=== PATIENT | female | born 1950 | race Caucasian/White ===

== ENCOUNTER 2018-02-03 01:21 | Outpatient (CLI) | payer MEDICARE, BC, SELFPAY ==
[2018-02-03 11:31] LABS: ALT 34 U/L (12-78); AST 21 U/L (15-37); Albumin 4.1 g/dL (3.4-5.0); Alkaline Phosphatase 59 U/L (46-116); Anion Gap 8.1 mmol/L (3-11); BUN 16 mg/dL (7-18); Bilirubin, Total 0.9 mg/dL (0.2-1.0); CO2 29.9 mmol/L (21.0-32.0); CREATININE 0.85 mg/dL (0.55-1.02); Calcium 9.2 mg/dL (8.5-10.1); Chloride 105 mmol/L (98-107); Cholesterol 162 mg/dL (50-200); Glucose 83 mg/dL (70-100); HDL Cholesterol 64 mg/dL (40-60); LDL CHOLESTEROL 83 mg/dL (<100); Potassium 4.1 mmol/L (3.5-5.1); Sodium 143 mmol/L (136-145); Total Protein 6.6 g/dL (6.4-8.2); Triglyceride 124 mg/dL (30-150)
== END 2018-02-03 01:41 ==
PROVIDERS: PCP Family Medicine; Visit Provider Family Medicine
DX: I10 Essential (primary) hypertension (principal)
CPT/HCPCS: 36415; 80053; 80061; 83721

== ENCOUNTER 2018-06-26 08:03 | Day surgery (SDC) | payer MEDICARE, BC, SELFPAY ==
[2018-06-26 08:13] VITALS: BP 118/57; PULSE 70; RESP 18; TEMP 36.4; O2SAT 97
[2018-06-26] MEDS: Lactated Ringers 1,000 ML 80 ML IV (08:39)
[2018-06-26] MEDS: ceFAZolin 1 GM/50 ML BAG IVPB (10:40)
[2018-06-26] MEDS: Bupivacaine 0.5% Pres-Free 30 ML VIAL (10:45)
[2018-06-26] MEDS: Lidocaine 1% Pres-Free 5 ML VIAL (10:45)
[2018-06-26] MEDS: Dexamethasone 4 MG/ML VIAL (11:30)
--- NOTE | 2018-06-26 11:45 | W.PM.DSUDISC ---
Discharge Plan Discharge Details Attending Provider: Edu Kerr Primary Care Provider: Alesia Juan Home Meds and New Rx's Prescriptions: No Action lisinopril-hydrochlorothiazide [Zestoretic] 10-12.5 mg tablet 1 tab PO DAILY Qty: 90 RF: 12 simvastatin [Zocor] 40 mg tablet 40 mg PO HS Qty: 90 RF: 12 Shingrix Adjuvant Component-PF suspension 1 ml IM ONCE Qty: 0.5 RF: 1 multivitamin 1 EACH tablet 1 ea PO DAILY RF: 0 cetirizine 10 MG tablet 10 mg PO DAILY PRNRF: 0 diphenhydramine HCl 25 mg tablet 25 mg PO HS PRNRF: 0 aspirin 81 MG tablet,delayed release (DR/EC) 81 mg PO DAILY RF: 0 calcium carbonate-vitamin D3 [Calcium 600 with Vitamin D3] 1 EACH capsule 1 ea PO BID RF: 0 DS: Diagnosis Discharge Diagnosis (1) Bunion of great toe of left foot: Start date: 06/26/18 Start time: 11:45 Status: Acute Asessment and Plan: bunionectomy, arthroplasty 2nd toe left foot
--- NOTE | 2018-06-26 11:46 | W.PM.DSUDISC ---
Discharge Plan Disposition Patient Disposition: HOME Condition: Good Discharge Details Reason For Visit: left bunionectomy and a Attending Provider: Edu Kerr Primary Care Provider: Alesia Juan Home Meds and New Rx's Prescriptions: No Action lisinopril-hydrochlorothiazide [Zestoretic] 10-12.5 mg tablet 1 tab PO DAILY Qty: 90 RF: 12 simvastatin [Zocor] 40 mg tablet 40 mg PO HS Qty: 90 RF: 12 Shingrix Adjuvant Component-PF suspension 1 ml IM ONCE Qty: 0.5 RF: 1 multivitamin 1 EACH tablet 1 ea PO DAILY RF: 0 cetirizine 10 MG tablet 10 mg PO DAILY PRNRF: 0 diphenhydramine HCl 25 mg tablet 25 mg PO HS PRNRF: 0 aspirin 81 MG tablet,delayed release (DR/EC) 81 mg PO DAILY RF: 0 calcium carbonate-vitamin D3 [Calcium 600 with Vitamin D3] 1 EACH capsule 1 ea PO BID RF: 0 Discharge Instructions Activity:: Elevate Remove Dressings/Wound Care:: Do Not Remove Shower/Bathe:: Cover Discharge Orders Discharge Orders: Discharge Order (Routine); Ordered 06/26/18 Ordered By: Edu Kerr DS: Diagnosis Discharge Diagnosis (1) Bunion of great toe of left foot: Status: Acute
[2018-06-26 12:25] VITALS: BP 111/62; PULSE 62; RESP 18; TEMP 36.5; O2SAT 97
--- NOTE | 2018-06-26 13:03 | ROE_ITS ---
DATE OF PROCEDURE: June 26, 2018 PREOPERATIVE DIAGNOSIS: 1. Painful left bunion deformity. 2. Painful left second hammertoe deformity. POSTOPERATIVE DIAGNOSIS: Same. PROCEDURE: 1. Rupert-type bunionectomy with 0.062 K-Wire fixation. 2. Arthroplasty left second toe with 0.062 K-Wire fixation. SURGEON: Oniel SewellPRosalee. ANESTHESIA: IV General with local block of the first and second digits utilizing a total 15 cc's 50: 50 mixture 1% Lidocaine plain, 0.5% Marcaine plain. OPERATIVE INDICATIONS: 68-year-old female with pain associated with a left bunion and second hammert oe, which did not respond to non-surgical treatment options. She is pursuing surgical repair. She u nderstands risks and complications pertaining to pain, scarring, infection, stiffness of the joint, o sunday-correction, under-correction, recurrence of deformities, the need for revisional procedures. All questions have been answered. Informed consent has been obtained. No promises are made to final o utcome of surgery. REPORT OF OPERATION: Sina was brought to the operative suite, placed in the supine position. The left foot was prepped and draped in the usual sterile podiatric fashion. Anesthesia being obtained, the left foot was exsanguinated; a well-padded ankle tourniquet inflated 250 mmHg. Attention was directed to the first MPJ where a 5 cm incision was made medial parallel to the EHL ten don, centered over the first MPJ. The incision was deepened in controlled depth fashion; hemostasis acquired with electrocautery as needed. Dissection was carried down to the joint capsule. Lateral c ontracture was appreciated. With a #15 scalpel a lateral capsulotomy was performed. The adductor te ndon was released and the fibular sesamoid mobilized. At this time the hallux was more relaxed. Att ention was directed dorsal medially and an inverted-L capsulotomy performed. The joint capsule was o pened and the first metatarsal head delivered into the wound. Hypertrophy was appreciated along the medial aspect of the first metatarsal head; mild degenerative change around the periphery of the firs t metatarsal head is seen, primarily dorsal and medially. With power instrumentation the medial hype rtrophy was resected. An offset V-osteotomy was then performed through the capital fragment first me tatarsal head. The head was translocated laterally and impacted. Significant improvement in the bun ion deformity noted. Fixation was obtained initially with a 2.7 Synthes screw. The screw spun out a nd bone was a little soft, so I decided to use a K-Wire percutaneously. A percutaneous K-Wire was th en placed, starting distal lateral through the first metatarsal head, exiting medial proximal through the skin. Excellent stability was noted. The medial shelf was resected. All rough and bony edges rasped smooth. The joint capsule was repaired with simple interrupted suture #3-0 Vicryl. A medial capsulorrhaphy was performed, tightening the joint. The hallux was sitting in a rectus position. Th e subcutaneous layer was repaired with #3-0 Vicryl. A running subcuticular stitch of #4-0 Monocryl w as used, followed by Mastisol and half-inch Steri-Strips. Attention was directed to the second toe. Two converging semielliptical incisions were placed over t he PIPJ. A skin wedge was excised. Soft tissue mobilization was performed. A transverse tenotomy c apsulotomy was performed at the PIPJ level with a #15 scalpel. Medial and lateral collaterals were r eleased. The head of the proximal phalanx delivered into the wound. With double-action bone-cutting forceps the head was resected, all rough and bony edges rasped smooth. The bone was soft. Copious irrigation was performed. Fixation was obtained through retrograde technique with a 0.062 K-Wire goi ng to the base of the proximal phalanx. There was no contracture at the MPJ level to correct. The e xtensor tendon was repaired end-to-end after shortening with #3-0 Vicryl, and the skin was coapted wi th simple interrupted suture #4-0 Nylon. Four milligrams of Dexamethasone Phosphate was infused betw een the wounds. Xeroform applied, followed by gauze fluff compression dressings. The tourniquet was released with vascularity returning immediately to all toes. Sina left the OR with vital signs s table, vascular status intact. She will be followed by me in the office next week. cc: Alesia Juan M.D.
== END 2018-06-26 12:38 | disposition home or self-care (01) ==
PROVIDERS: PCP Family Medicine; Visit Provider Podiatrist
PROC: (CPT 28292; principal; 2018-06-26 10:00)
PROC: (CPT 28296; 2018-06-26 10:00)
DX: M21.612 Bunion of left foot (principal); M20.42 Other hammer toe(s) (acquired), left foot
CPT/HCPCS: 28296; 28285; J0690; J1100

== ENCOUNTER → 2018-10-14 08:58 | Outpatient (BNVA) | payer MEDICARE, BC, SELFPAY | PROVIDERS: PCP Family Medicine; Referring Provider Family Medicine; Visit Provider Orthopaedic Surgery | DX: Z47.1 Aftercare following joint replacement surgery (principal); Z96.652 Presence of left artificial knee joint | CPT/HCPCS: 99212; 99213 ==

== ENCOUNTER 2019-02-23 02:22 | Outpatient (CLI) | payer MEDICARE, BC, SELFPAY ==
[2019-02-23 12:15] LABS: ALT 35 U/L (14-59); AST 21 U/L (15-37); Albumin 4.3 g/dL (3.4-5.0); Alkaline Phosphatase 59 U/L (46-116); Anion Gap 7.9 mmol/L (3-11); BUN 21 mg/dL (7-18); Bilirubin, Total 0.9 mg/dL (0.2-1.0); CO2 30.1 mmol/L (21.0-32.0); CREATININE 0.71 mg/dL (0.55-1.02); Calculated LDL 90 mg/dL; Chloride 106 mmol/L (98-107); Cholesterol 175 mg/dL (<200); Glucose 95 mg/dL (74-106); HDL Cholesterol 61 mg/dL (40-60); Potassium 4.3 mmol/L (3.5-5.1); Sodium 144 mmol/L (136-145); Total Protein 6.8 g/dL (6.4-8.2); Triglyceride 123 mg/dL (<150)
== END 2019-02-23 02:42 ==
PROVIDERS: PCP Family Medicine; Visit Provider Family Medicine
DX: I10 Essential (primary) hypertension (principal); E78.5 Hyperlipidemia, unspecified
CPT/HCPCS: 36415; 80053; 80061

== ENCOUNTER 2019-03-01 15:17 | Outpatient (CLI) | payer MEDICARE, BC, SELFPAY ==
--- NOTE | 2019-03-01 15:30 | DI.RAD_ITS ---
EXAM: XR HIP RT COMPLETE AP PELVIS INDICATION: r hip pain, M25.551. COMPARISON: LEFT KNEE LIMITED 1 OR 2 VIEWS from 10/09/2015 TECHNIQUE: 2D digital imaging was performed. FINDINGS: Hip joint spaces are well maintained. There is mild acetabular spurring. There is spurring from bot h greater trochanters and SI joints. IMPRESSION: Mild degenerative changes.
--- NOTE | 2019-03-01 15:34 | DI.RAD_ITS ---
EXAM: XR KNEE RT 4V AP,LAT,FRANSICO,PAT INDICATION: r knee pain, M25.561. COMPARISON: LEFT KNEE LIMITED 1 OR 2 VIEWS from 09/07/2015 TECHNIQUE: 2D digital imaging was performed. FINDINGS: Femorotibial joint spaces are well maintained. There is spurring from the medial femoral condyle and medial tibial plateau as well as patellofemoral joint. There is narrowing of the medial patellofemo ral joint seen on the bilateral patellar views. 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
== END 2019-03-01 15:37 ==
PROVIDERS: PCP Family Medicine; Visit Provider Family Medicine
DX: M25.551 Pain in right hip (principal); M25.561 Pain in right knee; M17.11 Unilateral primary osteoarthritis, right knee; M16.11 Unilateral primary osteoarthritis, right hip
CPT/HCPCS: 73502; 73564

== ENCOUNTER 2019-03-22 01:00 | Outpatient (CLI) | payer MEDICARE, BC, SELFPAY ==
[2019-03-22] MEDS: Omnipaque 350 MG/ML 100 ML BTL IJ (08:42)
[2019-03-22] MEDS: Omnipaque 350 MG/ML 50 ML BTL PO (08:45)
--- NOTE | 2019-03-22 08:50 | DI.CT_ITS ---
EXAM: CT ABDOMEN PELVIS W CLINICAL HISTORY: abdominal hernia vs lipoma,K46.9 TECHNIQUE: Imaging Protocol: Axial computed tomography images with coronal and sagittal reformatted images were created and reviewed CONTRAST MATERIAL: Intravenous: Omnipaque 350 Contrast volume:100 mL contrast route:IV - Oral: No COMPARISON: No previous for comparison. FINDINGS: ABDOMEN: Lung Bases: Normal where visualized. Liver: Normal density. There is a 4.0 centimeter bilobed cyst in the inferior aspect of the right lob e of the liver. This may represent a single cyst with a thin septation or 2 adjacent cysts. No solid hepatic mass is seen. The portal, superior mesenteric and splenic veins are patent. Gallbladder and biliary tract: Status post cholecystectomy. No biliary ductal dilatation. Pancreas: Normal density, no abnormal calcifications or inflammatory process. Spleen: Normal. Kidneys: Normal size, contour and axis. No radiodense stones or obstructive uropathy. 0.7 centimeters simple cyst in the posterior aspect of the inferior pole of the right kidney. Adrenal glands: No masses seen. Abdominal Aorta: Atherosclerosis. No aneurysm. PELVIS: Bladder: Symmetric distention, no gross wall thickening. Bowel: No obstruction or bowel wall thickening. Normal appendix. Peritoneal cavity: No ascites, collection or mesenteric inflammatory response. There is a fat contain ing midline upper abdominal wall hernia. It measures 4.3 cm by 2.4 cm by 2.8 cm. Bones: Multilevel degenerative changes. There is minimal retrolisthesis of L1 on L2. There is minim al anterolisthesis of L4 on L5. Reproductive organs: Within normal limits. Lymph nodes: Unremarkable. Impression: 4.3 x 2.4 x 2.8 cm midline upper abdominal wall fat containing hernia. Septated cyst in the caudal aspect of the right lobe of the liver. DATA REPOSITORY: All CT scans at this facility are submitted to the National Radiology Data Registry (NRDR) Dose Index Registry (DIR) with the [employer] (ACR). RADIATION OPTIMIZATION: All CT scans at this facility use at least one of these dose optimization te chniques: automated exposure control; mA and/or kV adjustment per patient size (includes targeted exa ms where dose is matched to clinical indication); or iterative reconstruction.
== END 2019-03-22 01:20 ==
PROVIDERS: PCP Family Medicine; Visit Provider Family Medicine
DX: K76.89 Other specified diseases of liver; K46.9 Unspecified abdominal hernia without obstruction or gangrene; N28.1 Cyst of kidney, acquired
CPT/HCPCS: 74177; J3490; Q9967

== ENCOUNTER → 2019-03-29 10:42 | Outpatient (BNVA) | payer MEDICARE, BC, SELFPAY | PROVIDERS: PCP Family Medicine; Referring Provider Family Medicine; Visit Provider Surgery | DX: K43.2 Incisional hernia without obstruction or gangrene (principal); I10 Essential (primary) hypertension | CPT/HCPCS: 99204; 99215 ==

== ENCOUNTER 2019-04-01 02:26 | Outpatient (CLI) | payer MEDICARE, BC, SELFPAY ==
--- NOTE | 2019-04-01 12:13 | DI.MAMMO_ITS ---
EXAM: MG MAMMO SCREENING CLINICAL HISTORY: screening, Z12.39 TECHNIQUE: Mammograms were interpreted according to the usual protocol including computer analysis w [employer] CAD system, tomosynthesis and C-view imaging. COMPARISON: Current examination is compared with previous examinations including February 2017 FINDINGS: The breasts are of moderate density with fairly symmetrical distribution of fibroglandular tissue. N o dominant mass or clumped microcalcification is identified in either breast. Current examination is compared with previous examinations including February 2017 and there has been no gross interval kymberly nge in appearance in comparison with the previous studies. IMPRESSION: No specific evidence of malignancy at this time. Routine screening examinations are suggested at yea rly intervals in this age group according to the ACS/ACR guidelines. Category 1, breast density categ ory B. BI-RADS Cat 1 - Negative Breast Density - Category B - Scattered areas of fibroglandular density
== END 2019-04-01 02:46 ==
PROVIDERS: PCP Family Medicine; Visit Provider Family Medicine
DX: Z12.31 Encounter for screening mammogram for malignant neoplasm of breast (principal)
CPT/HCPCS: 77063; 77067

== ENCOUNTER → 2019-04-07 10:36 | Outpatient (BNVA) | payer MEDICARE, BC, SELFPAY | PROVIDERS: PCP Family Medicine; Referring Provider Family Medicine; Visit Provider Orthopaedic Surgery | DX: M17.11 Unilateral primary osteoarthritis, right knee (principal) | CPT/HCPCS: 20610; 99213; J1040 ==

== ENCOUNTER 2019-04-20 06:11 | Day surgery (SDC) | payer MEDICARE, BC, SELFPAY ==
[2019-04-20 06:15] VITALS: BP 106/67; PULSE 74; RESP 16; TEMP 36.7; O2SAT 95
[2019-04-20] MEDS: Lactated Ringers 1,000 ML 80 ML IV (06:55)
--- NOTE | 2019-04-20 07:14 | W.PM.DSUDISC ---
Discharge Plan Disposition Patient Disposition: HOME Condition: Good Discharge Details Reason For Visit: Incisional hernia repair Attending Provider: Vanessa Peoples Primary Care Provider: Alesia Juan Home Meds and New Rx's Prescriptions: New hydrocodone-acetaminophen 5-325 mg Tablet 1 tab PO Q4H PRN (Reason: Pain) Qty: 12 RF: 0 hydrocodone-acetaminophen 5-325 mg tablet 1 tab PO Q4H PRN (Reason: pain) Qty: 12 RF: 0 Continued Shingrix Adjuvant Component-PF suspension 1 ml IM ONCE Qty: 0.5 RF: 1 triamcinolone acetonide 0.025 % cream 1 applic TP BID PRNRF: 0 lisinopril-hydrochlorothiazide [Zestoretic] 10-12.5 mg tablet 1 tab PO DAILY Qty: 90 RF: 12 simvastatin [Zocor] 40 mg tablet 40 mg PO HS Qty: 90 RF: 12 multivitamin 1 EACH tablet 1 ea PO DAILY RF: 0 cetirizine 10 MG tablet 10 mg PO DAILY PRNRF: 0 diphenhydramine HCl 25 mg tablet 25 mg PO HS PRNRF: 0 aspirin 81 MG tablet,delayed release (DR/EC) 81 mg PO DAILY RF: 0 calcium carbonate-vitamin D3 [Calcium 600 with Vitamin D3] 1 EACH capsule 1 ea PO BID RF: 0 Discharge Instructions Additional Instructions: The top bandage can be removed tomorrow. The steri strips will usually stick for about a week. When the edges start to curl up, they can be removed. It is okay to shower tomorrow, the water can run over the steri strips Do not swim or soak in a tub for two weeks Call for any concerns including fever, increased pain, vomiting, incision redness or drainage. Do not lift more than 15 pounds for four weeks. Walking and stairs are fine. Do not drive if on narcotic pain meds or if limited by pain. May use Tylenol alternating with ibuprofen for pain control. Ice is also an option. The maximum dose for Tylenol is 4000 mg/day. May use ibuprofen 800 mg every 8 hours as needed. If concerned about constipation, you may use a stool softener or milk of magnesia. Stand Alone Forms: DSU Post op Instructions Referrals: Vanessa Peoples MD [ [facility] STAFF PHYSICIAN] - (Return in 10-14 days for a postop check) Activity:: Do not lift more than 15 pounds for 4 weeks Remove Dressings/Wound Care:: 24 hours Shower/Bathe:: 24 hours Diet:: As Tolerated Discharge Orders Discharge Orders: Discharge Order (Routine); Ordered 04/20/19 Ordered By: Vanessa Peoples DS: Diagnosis Discharge Diagnosis (1) Incisional hernia: Status: Acute
[2019-04-20] MEDS: ceFAZolin 2 GM/50 ML BAG IVPB (07:33)
[2019-04-20] MEDS: Bupivacaine 0.5% Pres-Free 30 ML VIAL (07:59)
[2019-04-20] MEDS: Lidocaine 2% Multi-Dose 50 ML VIAL (07:59)
[2019-04-20 08:56] VITALS: BP 114/61; PULSE 67; RESP 16; TEMP 36.2; O2SAT 98
--- NOTE | 2019-04-21 08:18 | ROE_ITS ---
REPORT OF OPERATIVE PROCEDURE DATE OF PROCEDURE April 20, 2019 PREOPERATIVE DIAGNOSIS Incisional Hernia. POSTOPERATIVE DIAGNOSIS Incisional Hernia. PROCEDURE Incisional hernia repair. SURGEON Vanessa Peoples M.D. SLATER APPRENTICE Rachel Faulkner PA-C ANESTHESIA Local and General. INDICATIONS This is a 69-year-old woman with a tender not-reducible lump in the epigastric region at the site of a prior laparoscopic incision for a Maria Fernanda fundoplication. PROCEDURE DESCRIPTION The patient was placed supine on the operating table and under sedation, she had her upper abdomen prepped and draped sterilely. The skin overlying the lump was injected with local anesthetic. A small upper midline abdominal incision was made. The subcutaneous tissue was divided with cautery down to a moderate sized hernia sac. This was dissected free of the surrounding subcutaneous tissue and the hernia sac excised. A walnut size portion of preperitoneal fat protruded through the fascial defect. It was slightly difficult to reduce the fat as the fascial opening was about 1cm. This was too small for mesh placement. The defect was closed with buried 0 Prolene sutures with good result. There was good hemostasis. The skin was closed with a #4-0 Monocryl subcuticular stitch. She tolerated the procedure well and was stable to recovery.
== END 2019-04-20 09:40 | disposition home or self-care (01) ==
PROVIDERS: PCP Family Medicine; Visit Provider Surgery
PROC: (CPT 49560; principal; 2019-04-20 07:30)
DX: K43.2 Incisional hernia without obstruction or gangrene (principal)
CPT/HCPCS: 49560; J0690; J1100; J1885; J2001; J2405; J2704; J3010

== ENCOUNTER → 2019-04-29 08:48 | Outpatient (BNVA) | payer MEDICARE, BC, SELFPAY | PROVIDERS: PCP Family Medicine; Referring Provider Family Medicine; Visit Provider Surgery | DX: Z48.815 Encounter for surgical aftercare following surgery on the digestive system (principal) ==

== ENCOUNTER → 2020-01-31 09:24 | Outpatient (BNVA) | payer MEDICARE, BC, SELFPAY | PROVIDERS: PCP Family Medicine; Referring Provider Family Medicine; Visit Provider Surgery | DX: R21 Rash and other nonspecific skin eruption (principal); L82.1 Other seborrheic keratosis; I10 Essential (primary) hypertension | CPT/HCPCS: 11104; 99211 ==

== ENCOUNTER 2020-01-31 11:20 | Outpatient (REF) | payer MEDICARE, BC, SELFPAY ==
--- NOTE | 2020-01-31 09:45 | SKI_PTH ---
PATIENT: Sina Evangelista LOC: [facility] U#:[id number] AGE/SX: 70/F ROOM: RE01/31/[address]: Vanessa Peoples MD : 1950 BED: DIS: 01/31/2020 SPEC #: [id number] RECD: 01/31/20 14:20 STATUS: DIXON RELucien #: [id number] CHANG: 01/31/20 09:[address]: Vanessa Peoples DEPT: Surgical Specimen RECD BY: Brittney Goodson ENTERED: 01/31/20 14:21 SP TYPE: MELISA KNOX DR: Alesia Juan MD, DC Tissues: 1 - SKIN BIOPSY(SHAVE/PUNCH) Procedures: SKIN LEVEL 4 Comments: [id number] ([id number] [facility] [place]
== END 2020-01-31 11:40 ==
LOC: LBN 11:20
PROVIDERS: PCP Family Medicine; Visit Provider Surgery
DX: L30.8 Other specified dermatitis (principal)
CPT/HCPCS: 88305

== ENCOUNTER 2020-02-25 01:51 | Outpatient (CLI) | payer MEDICARE, BC, SELFPAY ==
[2020-02-25 10:03] LABS: ALT 29 U/L (14-59); AST 19 U/L (15-37); Albumin 4.3 g/dL (3.4-5.0); Alkaline Phosphatase 54 U/L (46-116); Anion Gap 3.6 mmol/L (3-11); BUN 22 mg/dL (7-18); Bilirubin, Total 0.8 mg/dL (0.2-1.0); CO2 29.4 mmol/L (21.0-32.0); CREATININE 0.92 mg/dL (0.55-1.02); Calcium 8.9 mg/dL (8.5-10.1); Calculated LDL 71 mg/dL (<100); Chloride 105 mmol/L (98-107); Cholesterol 156 mg/dL (<200); Glucose 97 mg/dL (74-106); HDL Cholesterol 57 mg/dL (40-60); Potassium 3.9 mmol/L (3.5-5.1); Sodium 138 mmol/L (136-145); Total Protein 6.5 g/dL (6.4-8.2); Triglyceride 140 mg/dL (<150)
== END 2020-02-25 02:11 ==
PROVIDERS: PCP Family Medicine; Visit Provider Family Medicine
DX: E78.5 Hyperlipidemia, unspecified (principal); I10 Essential (primary) hypertension
CPT/HCPCS: 36415; 80053; 80061

== ENCOUNTER 2020-03-13 16:45 | Outpatient (REF) | payer MEDICARE, BC, SELFPAY ==
[2020-03-13 13:39] LABS: Clarity Clear (Clear)
[2020-03-13 13:54] LABS: Epithelial Cells Few HPF (Negative)
[2020-03-13 13:55] LABS: Bacteria Many HPF (Negative); C & S Indicated? Yes; Casts Negative LPF (Negative); Crystals Negative HPF (Negative); Mucus Trace (Negative); Other Cells Few Renal (Negative)
== END 2020-03-13 17:05 ==
LOC: LBN 16:45
PROVIDERS: PCP Family Medicine; Visit Provider Family Medicine
DX: R35.0 Frequency of micturition (principal)
CPT/HCPCS: 87077; 81003; 81015; 87086; 87186

== ENCOUNTER 2020-04-03 01:23 | Outpatient (CLI) | payer MEDICARE, BC, SELFPAY ==
--- NOTE | 2020-04-03 12:59 | DI.MAMMO_ITS ---
EXAM: MG MAMMO SCREENING CLINICAL HISTORY: screening,Z12.39. TECHNIQUE: Bilateral full field digital CC and MLO mammographic images were obtained with 3D tomosyn thesis and utilizing computer aided detection (CAD). COMPARISON: Prior mammograms dating back to 2010, the most recent being March 2019. FINDINGS: March 2019 There are no spiculated masses nor malignant appearing microcalcification groups. There is no signif icant architectural distortion nor skin thickening-retraction. IMPRESSION: No radiographic evidence of malignancy. BI-RADS Category 1 - Negative Breast Density - Category B - Scattered areas of fibroglandular density Breast density Category C or D implies that the patient has dense breast tissue. Dense breast tissue can make it harder to find cancer on a mammogram. Dense breast tissue is also associated with an incr eased risk of breast cancer. This information about the result of the mammogram report was provided to the patient to raise their awareness. Use this report when you speak with the patient about their risks for breast cancer, which includes their family history. At that time, you may recommend additional screening tests (Ultrasoun d or MRI) as these tests may add significant information. A negative radiographic report should not delay biopsy if a dominant or clinically suspicious mass is present. Up to ten percent of cancers are not identified on mammography. A negative report may reinforce clinical impression. Adenosis and dense breasts may obscure an underlying neoplasm. False positive reports average 6 to 10%. Patient will receive a letter notifying them of these results.
== END 2020-04-03 01:43 ==
PROVIDERS: PCP Family Medicine; Visit Provider Family Medicine
DX: Z12.31 Encounter for screening mammogram for malignant neoplasm of breast (principal)
CPT/HCPCS: 77063; 77067

== ENCOUNTER 2021-04-10 02:29 | Outpatient (CLI) | payer MEDICARE, BC, SELFPAY ==
[2021-04-10 13:04] LABS: ALT 35 U/L (14-59); AST 21 U/L (15-37); Albumin 4.3 g/dL (3.4-5.0); Alkaline Phosphatase 64 U/L (46-116); Anion Gap 4.5 mmol/L (3-11); BUN 24 mg/dL (7-18); Bilirubin, Total 0.8 mg/dL (0.2-1.0); CO2 31.5 mmol/L (21.0-32.0); CREATININE 0.9 mg/dL (0.55-1.02); Calcium 9.5 mg/dL (8.5-10.1); Chloride 105 mmol/L (98-107); Glucose 92 mg/dL (74-106); Potassium 4.2 mmol/L (3.5-5.1); Sodium 141 mmol/L (136-145); Total Protein 6.9 g/dL (6.4-8.2)
== END 2021-04-10 02:30 | disposition home or self-care (01) ==
LOC: LBO 02:29
PROVIDERS: PCP Family Medicine; Visit Provider Family Medicine
DX: I10 Essential (primary) hypertension (principal)
CPT/HCPCS: 36415; 80053

== ENCOUNTER 2021-08-14 08:42 | Outpatient (CLI) | payer MEDICARE, BC, SELFPAY ==
--- NOTE | 2021-08-14 08:00 | DI.RAD_ITS ---
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 The components appear w ell seated. No other significant bony abnormality seen. IMPRESSION: RADIATION DOSE DELIVERED: Total DLP
== END 2021-08-14 08:43 | disposition home or self-care (01) ==
LOC: DIORS 08:43
PROVIDERS: PCP Family Medicine; Referring Provider Family Medicine; Visit Provider Physician Assistant
DX: S89.92XA Unspecified injury of left lower leg, initial encounter (principal); X58.XXXA Exposure to other specified factors, initial encounter
CPT/HCPCS: 73562; 99214

== ENCOUNTER 2022-02-12 03:09 | Outpatient (CLI) | payer MEDICARE, BC, SELFPAY ==
[2022-02-12 12:58] LABS: ALT 32 U/L (14-59); AST 31 U/L (15-37); Albumin 4.2 g/dL (3.4-5.0); Alkaline Phosphatase 65 U/L (46-116); Anion Gap 7.5 mmol/L (3-11); BUN 19 mg/dL (7-18); Bilirubin, Total 0.8 mg/dL (0.2-1.0); CO2 29.5 mmol/L (21.0-32.0); CREATININE 0.8 mg/dL (0.55-1.02); Calculated LDL 79 mg/dL (<100); Chloride 103 mmol/L (98-107); Cholesterol 161 mg/dL (<200); Estimated GFR 78.72 (mL/min/1.73m2); Glucose 89 mg/dL (74-106); HDL Cholesterol 63 mg/dL (40-60); Potassium 4.3 mmol/L (3.5-5.1); Sodium 140 mmol/L (136-145); Total Protein 7.3 g/dL (6.4-8.2); Triglyceride 99 mg/dL (<150)
== END 2022-02-12 03:10 | disposition home or self-care (01) ==
LOC: LOS 03:09
PROVIDERS: PCP Family Medicine; Visit Provider Family Medicine
DX: I10 Essential (primary) hypertension (principal)
CPT/HCPCS: 36415; 80053; 80061

== ENCOUNTER 2022-06-21 00:26 | Outpatient (CLI) | payer MEDICARE, BC, SELFPAY ==
--- NOTE | 2022-06-21 07:15 | DI.MAMMO_ITS ---
Exam(s) MAMMO SCREENING EXAM: MAMMO SCREENING CLINICAL HISTORY: screening,z12.39 TECHNIQUE: Mammograms were interpreted according to the usual protocol including computer analysis w [employer] CAD system, tomosynthesis and C-view imaging. COMPARISON: 2012 through 2020 FINDINGS: The breasts are composed of scattered fibroglandular densities, Breast Density category B. No suspicious masses or suspicious microcalcifications are seen. No skin thickening or abnormal axillary lymph nodes are seen. There has been no significant change from prior exams. IMPRESSION: BI-RADS Category 1, Negative mammogram Yearly screening mammography is recommended. Breast Density - Category B, scattered fibroglandular densities. A negative radiographic report should not delay biopsy if a dominant or clinically suspicious mass is present. Up to ten percent of cancers are not identified on mammography. A negative report may reinforce clinical impression. Adenosis and dense breasts may obscure an underlying neoplasm. False positive reports average 6 to 10%. Patient will receive a letter notifying them of these results.
--- NOTE | 2022-06-21 11:11 | DI.DEXA_ITS ---
Exam(s) XR DEXA BONE DENSITY W/WO CYNTHIA EXAM: XR DEXA BONE DENSITY W/WO CYNTHIA CLINICAL HISTORY: osteoporosis,m81.0 TECHNIQUE: [employer] C densitometer analysis of left hip, lumbar spine and left forearm. COMPARISON: 2003 and 2007 FINDINGS: Lateral view of the thoracic and lumbar spine shows no evidence of compression fractures. Bone mineral density measurements of the lumbar spine correspond to a total T-score of -2.2, in the osteopenic range. No change from 2007. 4.9 percent increase compared with 2003. Bone mineral density measurements of the left hip correspond to a total T-score of -1.8. The femora l neck T-score is -2.7, in the osteoporotic range. This represents a 4 percent decrease from 2008 a nd 4.5 percent decrease from 2003.. The left forearm bone mineral density measurements correspond to a T-score of the distal 3rd of -1.5 , in the osteopenic range. The forearm was not analyzed on the previous exams.. IMPRESSION: Osteopenia of the lumbar spine and forearm. Osteoporosis of the hip.
== END 2022-06-21 00:46 ==
LOC: DI 00:27
PROVIDERS: PCP Family Medicine; Visit Provider Family Medicine
DX: Z12.31 Encounter for screening mammogram for malignant neoplasm of breast (principal); M81.0 Age-related osteoporosis without current pathological fracture; M85.88 Other specified disorders of bone density and structure, other site
CPT/HCPCS: 77063; 77067; 77080

== ENCOUNTER 2023-05-05 04:42 | Outpatient (CLI) | payer MEDICARE, BC, SELFPAY ==
[2023-05-05 12:57] LABS: ALT 35 U/L (14-59); AST 21 U/L (15-37); Albumin 4.1 g/dL (3.4-5.0); Alkaline Phosphatase 64 U/L (46-116); Anion Gap 9.2 mmol/L (3-11); BUN 22 mg/dL (7-18); Bilirubin, Total 0.9 mg/dL (0.2-1.0); CO2 29.8 mmol/L (21.0-32.0); CREATININE 0.8 mg/dL (0.55-1.02); Calcium 9.5 mg/dL (8.5-10.1); Chloride 104 mmol/L (98-107); Estimated GFR 78.24 (mL/min/1.73m2); Glucose 98 mg/dL (74-106); Potassium 3.8 mmol/L (3.5-5.1); Sodium 143 mmol/L (136-145); Total Protein 7.1 g/dL (6.4-8.2)
== END 2023-05-05 04:43 | disposition home or self-care (01) ==
LOC: LOS 04:42
PROVIDERS: PCP Family Medicine; Visit Provider Family Medicine
DX: R73.9 Hyperglycemia, unspecified (principal); I10 Essential (primary) hypertension; E78.5 Hyperlipidemia, unspecified
CPT/HCPCS: 36415; 80053

== ENCOUNTER → 2023-06-25 01:18 | Outpatient (CLI) | payer MEDICARE, BC, SELFPAY ==
--- NOTE | 2023-06-25 06:45 | DI.MAMMO_ITS ---
Exam(s) MAMMO SCREENING EXAM: MAMMO SCREENING CLINICAL HISTORY: screening,z12.39 TECHNIQUE: Bilateral full field digital CC and MLO mammographic images were obtained with 3D tomosyn thesis and utilizing computer aided detection (CAD). COMPARISON: Available for comparison. FINDINGS: Masses/Architectural Distortion: None seen. Microcalcifications: No suspicious pleomorphic-type are seen. Skin Thickening/Nipple Retraction: None. IMPRESSION: 1. No significant interval change with no specific features of malignancy noted. 2. Unless there is more urgent need, screening mammography is recommended, as per [employer] guidelines. BI-RADS Category 1 - Negative Breast Density - Category B - Scattered areas of fibroglandular density Breast density category C or D implies that the patient has dense breast tissue. Dense breast tissue is very common and is not abnormal but dense breast tissue can make it harder to find cancer on a ma mmogram. Also, dense breast tissue may increase their breast cancer risk. This information about the result of the mammogram report was provided to the patient to raise their awareness. Use this report when you speak with the patient about their risks for breast cancer, which includes their family hist ory. At that time, you may recommend for more screening tests (Ultrasound or MRI) as they might be us eful based on their risk. A negative radiographic report should not delay biopsy if a dominant or clinically suspicious mass is present. Up to ten percent of cancers are not identified on mammography. A negative report may reinforce clinical impression. Adenosis and dense breasts may obscure an underlying neoplasm. False positive reports average 6 to 10%. Patient will receive a letter notifying them of these results.
== END ==
PROVIDERS: PCP Family Medicine; Visit Provider Family Medicine
DX: Z12.31 Encounter for screening mammogram for malignant neoplasm of breast (principal)
CPT/HCPCS: 77063; 77067

== ENCOUNTER 2024-06-11 00:14 | Outpatient (CLI) | payer MEDICARE, BC, SELFPAY ==
--- NOTE | 2024-06-11 10:44 | DI.RAD_ITS ---
Exam(s) XR ANKLE RT COMPLETE EXAM: XR ANKLE RT COMPLETE CLINICAL HISTORY: chronic r ankle pain,M25.579. TECHNIQUE: 2D digital imaging was performed. Three views. COMPARISON: No exams were available for comparison FINDINGS: BONES: No acute fracture is present. No bony destructive lesion is seen. Small calcanei enthesophyte s. Mild spurring at the malleoli. Spurring at the anterior tibial plafond and. JOINTS: The ankle mortise is normally aligned. No joint space narrowing. SOFT TISSUE: And lower leg edema. IMPRESSION: Mild degenerative changes. DATA REPOSITORY: RADIATION DOSE DELIVERED:
== END 2024-06-11 00:34 ==
LOC: DI 00:14
PROVIDERS: PCP Family Medicine; Visit Provider Family Medicine
DX: M25.571 Pain in right ankle and joints of right foot (principal)
CPT/HCPCS: 73610

== ENCOUNTER 2024-06-23 02:52 | Outpatient (CLI) | payer MEDICARE, BC, SELFPAY ==
[2024-06-23 12:31] LABS: HCT 37.9 % (36.0-46.0); HGB 12.2 g/dL (11.2-15.7); MCH 31.5 pg (27.0-33.0); MCHC 32.2 % (32.0-36.0); MCV 98 fL (80-95); MPV 11.1 fL (8.0-11.0); Platelet Count 209 10^3/uL (130-400); RBC 3.87 10^6/uL (3.93-5.22); RDW 13.9 % (11.7-14.6); RDW-SD 49.5 fL; WBC 4.28 10^3/uL (4.4-10.8)
[2024-06-23 12:48] LABS: ESR 7 mm/hr (0-30)
[2024-06-23 13:11] LABS: ALT 36 U/L (14-59); AST 22 U/L (15-37); Albumin 3.7 g/dL (3.4-5.0); Alkaline Phosphatase 52 U/L (46-116); Anion Gap 9.6 mmol/L (3-11); BUN 16 mg/dL (7-18); Bilirubin, Total 0.8 mg/dL (0.2-1.0); CO2 29.4 mmol/L (21.0-32.0); CREATININE 0.8 mg/dL (0.55-1.02); Calcium 9.3 mg/dL (8.5-10.1); Calculated LDL 58 mg/dL (<100); Chloride 106 mmol/L (98-107); Cholesterol 158 mg/dL (<200); Estimated GFR 77.75 (mL/min/1.73m2); Glucose 136 mg/dL (74-106); HDL Cholesterol 68 mg/dL (>or=50); Potassium 3.6 mmol/L (3.5-5.1); Sodium 145 mmol/L (136-145); Total Protein 6.7 g/dL (6.4-8.2); Triglyceride 164 mg/dL (<150); Vitamin B12 566 pg/mL (193-986); Vitamin D 25 Total 30 ng/mL (30-100)
[2024-06-23 13:20] LABS: C-Reactive Protein < 0.50 mg/dL (<or=0.5); Uric Acid 6.2 mg/dL (2.6-6.0)
[2024-06-23 18:16] LABS: Rheumatoid Factor <8.6 IU/mL (<12.0)
== END 2024-06-23 02:53 | disposition home or self-care (01) ==
LOC: LOS 02:52
PROVIDERS: PCP Family Medicine; Visit Provider Family Medicine
DX: I10 Essential (primary) hypertension (principal); Z00.00 Encounter for general adult medical examination without abnormal findings; M81.0 Age-related osteoporosis without current pathological fracture; R05.9 Cough, unspecified; G89.29 Other chronic pain; M25.571 Pain in right ankle and joints of right foot
CPT/HCPCS: 36415; 80053; 80061; 82306; 85027; 85652; 82607; 84550; 86140; 86431

== ENCOUNTER 2024-07-09 11:19 | Outpatient (CLI) | payer MEDICARE, BC, SELFPAY ==
--- NOTE | 2024-07-09 11:00 | DI.RAD_ITS ---
Exam(s) XR FOOT RT LIMITED EXAM: XR FOOT RT LIMITED CLINICAL HISTORY: right foot pain. TECHNIQUE: 2D digital imaging was performed. Three views. COMPARISON: No exams were available for comparison FINDINGS: BONES: No acute fracture is present. No bony destructive lesion is seen. Small heel spurs. JOINTS: No dislocation present. There is some flattening of the plantar arch. Mild degenerative kymberly nges in the intertarsal region. SOFT TISSUE: Normal. IMPRESSION: Mild degenerative changes and mild pes planus. DATA REPOSITORY: RADIATION DOSE DELIVERED:
== END 2024-07-09 11:20 | disposition home or self-care (01) ==
LOC: DIORS 11:19
PROVIDERS: PCP Family Medicine; Referring Provider Family Medicine; Visit Provider Physician Assistant
DX: M21.41 Flat foot [pes planus] (acquired), right foot
CPT/HCPCS: 99214; 73620

== ENCOUNTER 2024-08-02 01:49 | Outpatient (CLI) | payer MEDICARE, BC, SELFPAY ==
--- NOTE | 2024-08-02 08:30 | DI.MRI_ITS ---
Exam(s) MR LOWER EXTREMITY RT WO EXAM: MR LOWER EXTREMITY RT WO CLINICAL HISTORY: PAIN,pes planus rt foot, m21.41 TECHNIQUE: Multiplanar multisequence MRI was performed without intravenous contrast. COMPARISON: CR XR ANKLE RT COMPLETE from 06/11/2024 CR XR FOOT RT LIMITED from 07/09/2024 FINDINGS: SKIN: No evidence of ulcer nor subcutaneous tract. No significant foreign bodies evident. BONES/JOINTS: No evidence of fractures but there are degenerative subarticular cysts and some mild iza ne edema in the inferior aspect of the talus above the sustentacular talus level. There there is no e vidence of sinus tarsi ganglion cyst nor evidence of para-articular ganglion elsewhere in the foot. There are mild-moderate degenerative changes in the tarsometatarsal joints. There is also mild-moderate degenerative change in the great toe metatarsophalangeal joint. Other MT P joints appear unremarkable. PLANTAR FASCIA: Unremarkable. No abnormal signal nor abnormal nodularity. There is no abnormal intr aosseous signal at the insertion site the plantar fascia on the inferior aspect of the calcaneus. LISFRANC JOINT: There is some thinning of the main Lisfranc ligament but no high-grade tear of this s tructure. LIGAMENTS: Anterior and posterior talofibular ligaments appear intact. Calcaneofibular ligament appe ars intact. On the medial aspect of the ankle the deltoid ligament appears intact. Suspensory ligam ents appear intact. MUSCULOTENDINOUS STRUCTURES: ACHILLES TENDON: Unremarkable On the lateral aspect of the foot the peroneus brevis tendon appears intact. There is mild irregular ity of the peroneus longus tendon as it enters the peroneus groove of the cuboid. However, there is no high-grade tear nor prominent tenosynovitis. Flexor hallucis longus: Unremarkable in the proximal and mid foot. More distally there is tenosynov itis of this tendon in the distal foot starting 2 cm proximal to the great toe metatarsophalangeal odilia int. There is no tear of this tendon. Posterior tibial tendon (tibialis posterior): There is mild tendinitis and tenosynovitis. No high-gra de tear. Flexor digitorum longus: Unremarkable Extensor tendons of the foot: Unremarkable SOFT TISSUES: Unremarkable. OTHER FINDINGS: None. IMPRESSION: 1. There is mild marrow edema in the neck of the talus without evidence of a discrete fracture line. However, there are small degenerative subarticular cysts on the talar side of the subtalar joint at t his level. 2. There are some degenerative changes in the tarsometatarsal joints as well as in the great toe meta tarsophalangeal joint. 3. Mild tendinosis and tenosynovitis of the tibialis posterior tendon but no high-grade tear. 4. There is tenosynovitis of the distal flexor hallucis longus tendon starting at and distal to the m id metatarsal level. There is no tear of this tendon. DATA REPOSITORY:
--- NOTE | 2024-08-02 17:02 | DI.VRAD_ITS ---
PROCEDURE INFORMATION: Exam: MR Right Lower Extremity Other Than Joint Without Contrast; Foot Exam date and time: 08/02/2024 2:22 PM Age: 74 years old Clinical indication: Right; Pain, pes planus RT foot, m21.41; Additional info: Assess dispensary + other ligaments/tendons TECHNIQUE: Imaging protocol: Magnetic resonance imaging of the right lower extremity without contrast. Exam focused on the foot. COMPARISON: CR XR FOOT RT LIMITED 07/09/2024 11:16 AM FINDINGS: Bones/joints: The joint spaces are normally aligned. There are very small effusions of the posterior subtalar and talonavicular joints. Degenerative changes are present, including osteophyte formation about multiple intertarsal, tarsometatarsal and interphalangeal joints, as well as the 1st metatarsophalangeal joint, with some productive changes about the hallux sesamoids. Small plantar and posterior calcaneal enthesophytes are also again present. Mild patchy marrow edema is present in the neck of the talus, nonspecific. No discrete fracture is evident. LIGAMENTS: Lisfranc ligament: Unremarkable. No evidence of tear. TENDONS: Flexor tendons of foot: Small fluid is present in the flexor hallucis longus tendon sheath at the levels of the mid 1st metatarsal and 1st proximal phalanx, indicating tenosynovitis. The tendon itself is intact. Tibialis posterior tendon: There is mild tibialis posterior tendinopathy with small fluid in the tendon sheath, indicating tenosynovitis. Peroneal tendons: Unremarkable as visualized. Extensor tendons of foot: Unremarkable. No evidence of tear. Tibialis anterior tendon: Unremarkable as visualized. Tarsal canal (Sinus tarsi): Unremarkable. Tarsal tunnel: Unremarkable. Soft tissues: Very mild scattered subcutaneous soft tissue edema, nonspecific. Plantar fascia: Very mild proximal plantar fasciitis. IMPRESSION: 1. Degenerative changes as described. 2. Very small nonspecific effusions of the posterior subtalar and talonavicular joints. 3. Mild patchy marrow edema in the neck of the talus, also nonspecific, without discrete fracture evident. 4. Mild tendinopathy and tenosynovitis of the tibialis posterior. 5. Mild flexor hallucis longus tendinopathy distally. 6. Very mild scattered subcutaneous soft tissue edema, nonspecific. 7. Very mild proximal plantar fasciitis. Dictated and Authenticated by: Nic Gomez MD. Orderin Natasha Shea MD
== END 2024-08-02 02:09 ==
LOC: DI 01:49
PROVIDERS: PCP Family Medicine; Visit Provider Student in an Organized Health Care Education/Training Program
DX: M21.41 Flat foot [pes planus] (acquired), right foot (principal)
CPT/HCPCS: 73718

== ENCOUNTER 2024-10-13 14:26 | Outpatient (CLI) | payer MEDICARE, BC, SELFPAY ==
--- NOTE | 2024-10-13 13:30 | DI.RAD_ITS ---
Exam(s) XR SHOULDER LT COMPLETE 2+V EXAM: XR SHOULDER LT COMPLETE 2+V CLINICAL HISTORY: LEFT SHOULDER PAIN. TECHNIQUE: 2D digital imaging was performed. Two views. COMPARISON: No exams were available for comparison FINDINGS: BONES: No acute fracture is present. No bony destructive lesion is seen. JOINTS: No dislocation present. Mild narrowing of the glenohumeral joint. Spurring at the inferior margin of the glenoid and inferior humeral head. No significant inferior spurring of the glenoid. SOFT TISSUE: Normal. IMPRESSION: [id number] degenerative changes of the glenohumeral joint. DATA REPOSITORY: RADIATION DOSE DELIVERED:
== END 2024-10-13 14:27 | disposition home or self-care (01) ==
LOC: DIORS 14:26
PROVIDERS: PCP Family Medicine; Referring Provider Family Medicine; Visit Provider Student in an Organized Health Care Education/Training Program
DX: M25.512 Pain in left shoulder (principal); M19.012 Primary osteoarthritis, left shoulder; I10 Essential (primary) hypertension
CPT/HCPCS: 99214; 73030

== ENCOUNTER 2024-11-19 00:22 | Outpatient (CLI) | payer MEDICARE, BC, SELFPAY ==
--- NOTE | 2024-11-19 11:14 | DI.RAD_ITS ---
Exam(s) RF JOINT INJ. FLUORO GUID RAD EXAM: RF JOINT INJ. FLUORO GUID RAD CLINICAL HISTORY: L SHOULDER PAIN,FLUORO GUIDED INJECTION,ARTHRITIS LT GLENOHUMERAL JOINT,. TECHNIQUE: 2D and realtime digital imaging was performed. CONTRAST MATERIAL: Omnipaque 300 bcdan-djeztveqm-9.5 cc COMPARISON: Prior radiographs were reviewed. FINDINGS: This fluoroscoped left shoulder glenohumeral joint steroid injection was performed at the request of the referring orthopedic surgeon. Patient was consented prior to this procedure. Patient was placed in supine position on the fluoroscopy table. Using sterile technique and adequate skin-subcutaneous anesthesia, fluoroscopic guidance was used to advance a 22 gauge spinal needle into the glenohumeral joint using an anterior approach. Intra-articular position was confirmed with injection of Omnipaque 300. Thereafter a sterile solution of 40 milligrams Depo-Medrol and 3 cc of 0.25 percent bupivacaine was injected into the joint. Needle was then removed. Band-Aid applied Patient tolerated this procedure well and there were no intraprocedural complications. IMPRESSION: Successful fluoroscopic guided left shoulder glenohumeral joint steroid injection RADIATION DOSE DELIVERED: fern Sebastian=1.1mGy
[2024-11-19] MEDS: Lidocaine 1% Pres-Free 30 ML VIAL IJ (11:15)
[2024-11-19] MEDS: Omnipaque 300 MG/ML 10 ML BTL IJ (11:16)
[2024-11-19] MEDS: methylPREDNISolone ACETATE 40 MG/ML VIAL IM (11:16)
[2024-11-19] MEDS: Bupivacaine 0.25% Pres-Free 10 ML VIAL IJ (11:19)
== END 2024-11-19 00:42 ==
LOC: DI 00:22
PROVIDERS: PCP Family Medicine; Visit Provider Student in an Organized Health Care Education/Training Program
DX: M19.012 Primary osteoarthritis, left shoulder (principal)
CPT/HCPCS: 77002; J0665; J1010

== ENCOUNTER 2024-12-02 02:54 | Outpatient (CLI) | payer MEDICARE, BC, SELFPAY ==
--- NOTE | 2024-12-02 06:30 | DI.MAMMO_ITS ---
Exam(s) MAMMO SCREENING EXAM: MAMMO SCREENING CLINICAL HISTORY: screening,Z12.39. TECHNIQUE: Bilateral full field digital CC and MLO mammographic images were obtained with 3D tomosynthesis and utilizing computer aided detection (CAD). COMPARISON: Prior mammograms were reviewed. FINDINGS: There has been no significant change in the appearance and distribution of the fibroglandular tissue. No new left breast findings. In the right breast there is a noncalcified nodule measuring 5 x 4 mm located 4 cm in from the nipple on the CC view, medial of center. Similar distance in from the nipple on the MLO view. This has slightly increased in size from prior mammograms. There are no malignant-appearing microcalcifications in this region or elsewhere in either breast There is no significant architectural distortion nor skin thickening-retraction. IMPRESSION: 1. No radiographic evidence of malignancy in left breast. 2. 5 x 4 mm right breast nodule as described above. Spot compression views and breast ultrasound recommended. BI-RADS Category 0 - Incomplete: Need additional imaging evaluation Breast Density - Category B - There are scattered areas of fibroglandular density. Breast density Category C or D implies that the patient has dense breast tissue. Dense breast tissue can make it harder to find cancer on a mammogram. Dense breast tissue is also associated with an increased risk of breast cancer. This information about the result of the mammogram report was provided to the patient to raise their awareness. Use this report when you speak with the patient about their risks for breast cancer, which includes their family history. At that time, you may recommend additional screening tests (Ultrasound or MRI) as these tests may add significant information. A negative radiographic report should not delay biopsy if a dominant or clinically suspicious mass is present. Up to ten percent of cancers are not identified on mammography. A negative report may reinforce clinical impression. Adenosis and dense breasts may obscure an underlying neoplasm. False positive reports average 6 to 10%. Patient will receive a letter notifying them of these results.
--- NOTE | 2024-12-02 15:03 | DI.DEXA_ITS ---
Exam(s) XR DEXA BONE DENSITY W/WO CYNTHIA EXAM: XR DEXA BONE DENSITY W/WO CYNTHIA CLINICAL HISTORY: SCREENING FOR OSTEOPOROSIS POSTMENOPAUSAL STATUS,Z78.0 TECHNIQUE: [employer] C densitometer analysis of left hip, lumbar spine and left forearm. Lateral survey image of the thoracic and lumbar spine. COMPARISON: 2003, 2007 and 2012. FINDINGS: Lateral view of the thoracic and lumbar spine shows no evidence of compression fractures. Bone mineral density measurements of the lumbar spine correspond to a total T- score of -1.6, in the osteopenic range. This represents an 8.2 percent increase from 2022 and 13.4 percent increase from 2003 Bone mineral density measurements of the left hip correspond to a total T-score of -1.9 this corresponds to a 2.6 percent decrease from 2022-6.8 percent decrease from 2003. The femoral neck T-score is -2.8, in the osteoporotic range.. Theleft forearm bone mineral density measurements correspond to a T-score of the distal 3rd of -1.3, in the osteopenic range. This is not significant change from 2022. Form arm was not analyzed prior to that date. IMPRESSION: Osteoporosis of the the left hip. Osteopenia of the spine and forearm.
== END 2024-12-02 03:14 ==
PROVIDERS: PCP Family Medicine; Visit Provider Family Medicine
DX: Z12.31 Encounter for screening mammogram for malignant neoplasm of breast (principal); Z78.0 Asymptomatic menopausal state; M81.0 Age-related osteoporosis without current pathological fracture
CPT/HCPCS: 77063; 77067; 77080

== ENCOUNTER 2024-12-08 01:49 | Outpatient (CLI) | payer MEDICARE, BC, SELFPAY ==
--- NOTE | 2024-12-08 | DI.US_ITS ---
Exam(s) MG MAMMO SCREEN CALL BACK UNI US BREAST RT COMPLETE EXAM: MG MAMMO SCREEN CALL BACK UNI-RIGHT AND COMPLETE RIGHT BREAST ULTRASOUND CLINICAL HISTORY: F/U MAMMO, R92.8, RT BREAST NODULE. TECHNIQUE: Unilateral spot mammographic images obtained with 3D tomosynthesisand utilizing computer aided detection (CAD). . Complete RIGHT breast Ultrasound was also performed, including all 4 quadrants, the retroareolar region, and the ipsilateral axilla. During today's ultrasound exam a cutaneous Beakley spot was placed over unexpected finding at the 11 o'clock position and thereafter the patient was returned to the mammogram suite for additional mammogram images. Relevant findings today are as follows: COMPARISON: Prior mammograms were reviewed. This additional imaging was performed due to findings described on the recent screening mammogram of 12/02/2024. FINDINGS: DIAGNOSTIC MAMMOGRAM: Additional mammographic views performed todaydoes not dissipate the small nodule described on the mammogram of 12/02/2024. We proceeded with ultrasound. COMPLETE RIGHT BREAST ULTRASOUND: Ultrasound performed today reveals a 5 x 3 mm oval probable hemorrhagic microcyst at the 1 o'clock position.. This probably corresponds to the finding on the mammogram.. There is no other finding seen which is at the 11 o'clock position and has appearance of a taller than wider 5 x 4 mm nodule with slightly decreased through transmission. There are no other ultrasound findings in the right breast. Scanning of the ipsilateral axilla reveals no significant adenopathy. At this point a cutaneous beakley spot was placed at the 11 o'clock finding with ultrasound guidance and thereafter patient was sent back to the mammography suite for repeat mammographic images. These additional exaggerated CC and MLO mammographic images do not reveal significant mammographic findings in the region of the Beakley spot marker. IMPRESSION: 1. There are 2 findings in the right breast on ultrasound, 1 of which probably corresponds to the finding on the mammogram and has appearance of a probable benign hemorrhagic microcyst measuring 5 by 3 mm. 2. The other findings at the 11 o'clock position and a somewhat concerning looking nodule seen only on ultrasound. Appropriate follow-up as discussed by myself with the patient today is to perform breast MRI. The patient was informed of these findings and recommendations by myself prior to leaving the department today. BI-RADS Category 0 - Incomplete: Need additional imaging evaluation, specifically breast MRI. Breast Density - Category B - There are scattered areas of fibroglandular density. Breast density Category C or D implies that the patient has dense breast tissue. Dense breast tissue can make it harder to find cancer on a mammogram. Dense breast tissue is also associated with an increased risk of breast cancer. This information about the result of the mammogram report was provided to the patient to raise their awareness. Use this report when you speak with the patient about their risks for breast cancer, which includes their family history. At that time, you may recommend additional screening tests (Ultrasound or MRI) as these tests may add significant information. A negative radiographic report should not delay biopsy if a dominant or clinically suspicious mass is present. Up to ten percent of cancers are not identified on mammography. A negative report may reinforce clinical impression. Adenosis and dense breasts may obscure an underlying neoplasm. False positive reports average 6 to 10%. Patient will receive a letter notifying them of these results.
== END 2024-12-08 02:09 ==
LOC: DI 01:50
PROVIDERS: PCP Family Medicine; Visit Provider Family Medicine
DX: Z12.31 Encounter for screening mammogram for malignant neoplasm of breast (principal); N63.12 Unspecified lump in the right breast, upper inner quadrant
CPT/HCPCS: 76642; 77063; 77067